=== PATIENT | male | born 1975 | race African-American/Black ===

== ENCOUNTER 2024-01-30 23:45 | Emergency (ER) | payer OTHER ==
[2024-01-30 23:54] VITALS: BP 157/94; PULSE 65; RESP 20; TEMP 98.3; BMI 28.0
[2024-01-31] MEDS ORDERED: METHOCARBAMOL 750 MG TAB PO ONE (00:45)
[2024-01-31] MEDS ORDERED: METHOCARBAMOL 500 MG TABLET ONE (00:51)
[2024-01-31] MEDS ORDERED: LIDOCAINE 4% PATCH TP ONE (00:51)
[2024-01-31] MEDS ORDERED: KETOROLAC TROMETHAMINE 30 MG/1 ML VIAL ONE (00:51)
[2024-01-31] MEDS: KETOROLAC TROMETHAMINE 30 MG/1 ML VIAL IM ONE (00:57)
[2024-01-31] MEDS: METHOCARBAMOL 750 MG TAB PO ONE (00:57)
[2024-01-31] MEDS: LIDOCAINE 4% PATCH TP ONE (00:58)
[2024-01-31] MEDS ORDERED: LIDOCAINE PATCH REMOVAL MC SCH (22:00)
== END 2024-01-31 01:54 | disposition home or self-care (01) ==
LOC: JER 23:45
PROC: 3E0133Z Introduction of Anti-inflammatory into Subcutaneous Tissue, Percutaneous Approach (ICD-10-PCS; principal; 2024-01-31)
DX: M54.2 Cervicalgia (principal); M25.512 Pain in left shoulder; V49.50XA Passenger injured in collision with unspecified motor vehicles in traffic accident, initial encounter; Y92.410 Unspecified street and highway as the place of occurrence of the external cause
CPT/HCPCS: 99284-25